=== PATIENT | male | born 1950 | race Caucasian/White ===

== ENCOUNTER 2021-04-19 06:14 | Day surgery (SDC) | payer MEDICARE ==
[~2021-04-19] VITALS: Ht 177.8 cm; Wt 136.1 kg
[~2021-04-19 06:14] MED LIST: ALBUTEROL0.63 MG/3 INH; ALDACTONE25 MG PO; ASPIR 8181 MG PO; COREG 12.5MG12.5 MG PO; ELAVIL 50 MG TA50 MG PO; ESOMEPRAZOLE MA40 MG PO; LASIX40 MG PO; LEVOCETIRIZINE D5 MG PO; LORTAB 7.5-3251 EACH PO; LOSARTAN POTASS25 MG PO; MELOXICAM15 MG PO; MONTELUKAST SOD10 MG PO; NASONEX SPRAY 117 GM; PLAVIX 75 MG TA75 MG PO; PRAVACHOL40 MG PO; PROAIR HFA8.5 GM INH; TIZANIDINE HCL4 M1 PO
[2021-04-19] MEDS ORDERED: AMIODARONE HCL200 MG PO (07:45)
[2021-04-19] MEDS ORDERED: ATORVASTATIN CA80 MG PO (07:45)
[2021-04-19] MEDS ORDERED: ENTRESTO 24 MG1 EACH PO (07:45)
[2021-04-19] MEDS ORDERED: IPRATROPIUM BRO15 ML (07:46)
[2021-04-19] MEDS ORDERED: FERROUS SULFAT325 MG PO (07:46)
[2021-04-19] MEDS ORDERED: TRAZODONE HCL50 MG PO (07:47)
[2021-04-19] MEDS ORDERED: LEVOTHYROXINE112 MC1 PO (07:47)
[2021-04-19] MEDS ORDERED: CLARITIN10 MG PO (07:47)
[2021-04-19] MEDS ORDERED: VITAMIN C PO (07:48)
[2021-04-19] MEDS ORDERED: ROBAXIN 750 MG750 MG PO (07:48)
[2021-04-19] MEDS ORDERED: POTASSIUM CHLO20 ME1 PO (07:49)
[2021-04-19] MEDS ORDERED: MELATONIN10 M2 PO (07:50)
[2021-04-19 15:15] LABS: HEMOGLOBIN 15.5 gm/dl (14.0-17.5); RED BLOOD COUNT 4.64 M/UL (4.20-5.50); WHITE BLOOD COUNT 14.6 K/UL (4.5-11.0)
[2021-04-19 15:31] LABS: BUN/CREATININE RATIO 18 (0-10)
[2021-04-20 07:48] LABS: WHITE BLOOD COUNT 14.6 K/UL (4.5-11.0)
[2021-04-20 07:53] LABS: HEMOGLOBIN 13.5 gm/dl (14.0-17.5); RED BLOOD COUNT 4.1 M/UL (4.20-5.50)
[2021-04-21 04:51] LABS: HEMOGLOBIN 12.4 gm/dl (14.0-17.5); RED BLOOD COUNT 3.75 M/UL (4.20-5.50)
[2021-04-21 04:54] LABS: WHITE BLOOD COUNT 9.2 K/UL (4.5-11.0)
== END 2021-04-21 16:33 | disposition home or self-care (01) ==
LOC: OR 06:14 → M/S 17:35 → OR 04-21 16:33
PROVIDERS: Internal Medicine Gastroenterology; Internal Medicine Infectious Disease
DX: K91.71 Accidental puncture and laceration of a digestive system organ or structure during a digestive system procedure (principal); K59.09 Other constipation; E66.01 Morbid (severe) obesity due to excess calories; I11.0 Hypertensive heart disease with heart failure; I50.22 Chronic systolic (congestive) heart failure; E03.9 Hypothyroidism, unspecified; D69.6 Thrombocytopenia, unspecified; I25.5 Ischemic cardiomyopathy; Y69 Unspecified misadventure during surgical and medical care; Y73.0 Diagnostic and monitoring gastroenterology and urology devices associated with adverse incidents; Y92.234 Operating room of hospital as the place of occurrence of the external cause; Z86.010 Personal history of colon polyps; Z88.4 Allergy status to anesthetic agent; Z88.1 Allergy status to other antibiotic agents; Z72.0 Tobacco use; Z79.82 Long term (current) use of aspirin; Z96.651 Presence of right artificial knee joint; Z90.49 Acquired absence of other specified parts of digestive tract; Z95.810 Presence of automatic (implantable) cardiac defibrillator; Z86.73 Personal history of transient ischemic attack (TIA), and cerebral infarction without residual deficits; Z20.822 Contact with and (suspected) exposure to COVID-19
CPT/HCPCS: 36415; 80048; 80053; 85025; 94640; 94664; 94760; C1729; J1100; J1580; J2001; J2270; J2405; J2543; J2704; J3010; J7030; J7040; J7120